=== PATIENT | female | born 1970 | race Caucasian/White ===

== ENCOUNTER 2018-01-18 10:13 | Emergency (ER) | payer OTHER ==
[~2018-01-18] VITALS: Ht 147.3 cm; Wt 54.5 kg
[~2018-01-18 10:13] MED LIST: ASPI-556 PO; ATEN50TA PO; HYDR25TA PO; INSU100V12 SQ; LEVO500 PO; LISI40TA4 PO; SERT100T12 PO; SIMV40TA5 PO
[2018-01-18 10:28] LABS: GLUCOSE,POINT OF CARE 160 MG/DL (70-110)
[2018-01-18 12:08] VITALS: BP 124/63
[2018-01-18 12:38] LABS: BASOPHILS % (AUTO) 0.6 % (0.0-2.0); EOSINOPHILS % (AUTO) 4.7 % (1.0-6.0); HEMOGLOBIN 8.9 g/dL (12.0-16.0); LYMPHOCYTES # (AUTO) 1.4 K/uL (1.0-4.8); LYMPHOCYTES % (AUTO) 17.9 % (22.0-44.0); MEAN CORPUSCULAR HEMOGLOBIN 29.6 pg (26.0-34.0); MEAN CORPUSCULAR HGB CONC 34.3 G/dL (31.0-37.0); MEAN CORPUSCULAR VOLUME 86 fL (80-100); MONOCYTES # (AUTO) 0.4 K/uL (0.1-1.0); MONOCYTES % (AUTO) 4.6 % (2.0-9.0); NEUTROPHILS # (AUTO) 5.6 K/uL (1.8-7.7); NEUTROPHILS % (AUTO) 72.2 % (40.0-70.0); PLATELET COUNT (AUTO) 374 K/uL (150-450); RED BLOOD CELL COUNT(AUTO) 3.01 MIL/uL (4.00-5.20); RED CELL DISTRIBUTION WIDTH 14.2 % (11.5-14.5)
[2018-01-18 12:41] LABS: CALCIUM, TOTAL 9.2 mg/dL (8.8-10.5); CREATININE 1.89 mg/dL (0.60-1.30); POTASSIUM 4.7 mmol/L (3.5-5.1)
[2018-01-18 12:54] LABS: ALBUMIN 2.6 g/dL (3.4-5.0); BILIRUBIN,TOTAL 0.3 mg/dL (0.1-1.0)
[2018-01-18 13:09] LABS: APPEARANCE,URINE CLEAR (CLEAR); BILIRUBIN,URINE NEGATIVE (NEGATIVE); GLUCOSE, URINE (UA) 100 mg/dL (NEGATIVE); KETONES,URINE NEGATIVE (NEGATIVE); LEUKOCYTE ESTERASE ,URINE NEGATIVE (NEGATIVE); NITRATE,URINE NEGATIVE (NEGATIVE); OCCULT BLOOD,URINE MODERATE (NEGATIVE); PH,URINE 6.5 (5.0-8.0); PROTEIN,URINE SEE CONFIRM (NEGATIVE); UROBILINOGEN,URINE 0.2 mg/dL (<=1.0)
[2018-01-18 13:17] LABS: SULFOSALICYLIC ACID,URINE 3+ (Negative)
[2018-01-18 13:18] LABS: BACTERIA,URINE Rare /HPF (None Seen); SQUAMOUS EPITHELIAL CELL,UR Few /LPF (None Seen); WBC,URINE 0-2 /HPF (0-5)
== END 2018-01-18 13:51 | disposition home or self-care (01) ==
LOC: EMS 10:15
DX: R10.13 Epigastric pain (principal); R11.10 Vomiting, unspecified; R19.7 Diarrhea, unspecified; I10 Essential (primary) hypertension; E78.00 Pure hypercholesterolemia, unspecified; E11.9 Type 2 diabetes mellitus without complications
CPT/HCPCS: 99284

== ENCOUNTER 2018-07-04 17:33 | Emergency (ER) | payer OTHER ==
[~2018-07-04] VITALS: Ht 149.9 cm; Wt 68.6 kg
[~2018-07-04 17:33] MED LIST changes: -LEVO500 PO
[2018-07-04 17:55] LABS: GLUCOSE,POINT OF CARE 394 MG/DL (70-110)
[2018-07-04] MEDS ORDERED: RANI150T7 PO (17:55)
[2018-07-04] MEDS ORDERED: METO-558 PO (17:55)
[2018-07-04] MEDS ORDERED: ALBU8HFA PO (17:55)
[2018-07-04] MEDS ORDERED: AZIT250T9 PO (17:55)
[2018-07-04] MEDS ORDERED: ATOR40TA28 PO (17:55)
[2018-07-04 18:18] LABS: INFLUENZA TYPE A NEGATIVE FOR TYPE A (NEGATIVE); INFLUENZA TYPE B NEGATIVE FOR TYPE B (NEGATIVE)
[2018-07-04] MEDS ORDERED: IPRATROPIUM BROMIDE 0.5 MG/2.5 ML NEB SOLUTION NEB ONE (20:15)
[2018-07-04] MEDS ORDERED: ALBUTEROL SULFATE 2.5 MG/0.5 ML NEB SOLUTION NEB ONE (20:15)
[2018-07-04] MEDS ORDERED: DEXAMETHASONE SOD PHOS 4 MG/ML 5 ML VIAL IM ONE (20:45)
[2018-07-04 21:31] VITALS: BP 145/88
== END 2018-07-04 21:32 | disposition home or self-care (01) ==
LOC: EMS 17:34
DX: J20.9 Acute bronchitis, unspecified (principal); E11.65 Type 2 diabetes mellitus with hyperglycemia; E78.00 Pure hypercholesterolemia, unspecified; I10 Essential (primary) hypertension; Z79.899 Other long term (current) drug therapy; Z79.4 Long term (current) use of insulin; Z79.82 Long term (current) use of aspirin
CPT/HCPCS: 81002; 82962; 87804; 94640; 96372; 99283; J1100

== ENCOUNTER 2021-03-30 11:47 | Emergency (ER) | payer OTHER ==
[~2021-03-30] VITALS: Ht 149.9 cm; Wt 66.0 kg
[~2021-03-30 11:47] MED LIST changes: +ALBU8HFA IH; +ASPI-1450 PO; -ASPI-556 PO; -ATEN50TA PO; +ATOR40TA28 PO; +B CO1CAP6 PO; +DULA0.75 SQ; +EPOE10I SQ; +FOLI0.8T43 PO; +FURO40 PO; +GABA-1216 PO; -HYDR25TA PO; +INSU100I26 SQ; -INSU100V12 SQ; -LISI40TA4 PO; +LORA10TA7 PO; +MELA3TAB89 PO; +METO-558 PO; +OMEP20 PO; +OS500 PO; +SERT-162 PO; -SERT100T12 PO; -SIMV40TA5 PO; +ZINC220C14 PO
[2021-03-30] MEDS ORDERED: GABAPENTIN 100 MG CAPSULE PO ONE (12:30)
[2021-03-30] MEDS ORDERED: ASPIRIN 325 MG TABLET PO ONE (12:30)
[2021-03-30 13:54] VITALS: BP 151/82
== END 2021-03-30 14:52 | disposition home or self-care (01) ==
LOC: EMS 12:04
DX: S83.92XA Sprain of unspecified site of left knee, initial encounter (principal); E11.9 Type 2 diabetes mellitus without complications; E78.00 Pure hypercholesterolemia, unspecified; I10 Essential (primary) hypertension; Z79.82 Long term (current) use of aspirin; Z79.899 Other long term (current) drug therapy; Z79.4 Long term (current) use of insulin; W01.0XXA Fall on same level from slipping, tripping and stumbling without subsequent striking against object, initial encounter; Y93.89 Activity, other specified; Y92.481 Parking lot as the place of occurrence of the external cause; Y99.8 Other external cause status
CPT/HCPCS: 99283

== ENCOUNTER 2021-05-29 09:36 | Emergency (ER) | payer OTHER ==
[~2021-05-29] VITALS: Ht 149.9 cm; Wt 68.0 kg
[2021-05-29 10:54] LABS: COVID AG,FIA SOURCE NASOPHARYNGEAL
[2021-05-29 11:00] VITALS: BP 135/89
[2021-05-29] MEDS ORDERED: IBUPROFEN 600 MG TABLET PO ONE (11:00)
[2021-06-01] MEDS ORDERED: ZINC220C14 PO (17:05)
[2021-06-01] MEDS ORDERED: DOXA2TAB2 PO (17:08)
[2021-06-01] MEDS ORDERED: BECL10.6 IH (17:08)
[2021-06-01] MEDS ORDERED: AMLO10TA55 PO (17:08)
[2021-06-01] MEDS ORDERED: ALEN35TA53 PO (17:08)
[2021-06-01] MEDS ORDERED: FAMO40TA7 PO (17:08)
[2021-06-01] MEDS ORDERED: HYDR-4174 PO (17:08)
[2021-06-01] MEDS ORDERED: SEVE800T17 PO (17:08)
== END 2021-05-29 11:00 | disposition home or self-care (01) ==
LOC: EMS 09:48
DX: M25.562 Pain in left knee (principal); I10 Essential (primary) hypertension; E11.9 Type 2 diabetes mellitus without complications; E78.00 Pure hypercholesterolemia, unspecified; Z20.822 Contact with and (suspected) exposure to COVID-19
CPT/HCPCS: 82962; 99283

== ENCOUNTER → 2021-07-05 | Outpatient (CLI) | payer OTHER ==
[~2021-07-05] MED LIST changes: +ALEN35TA53 PO; +AMLO10TA55 PO; -ASPI-1450 PO; +BECL10.6 IH; +DOXA2TAB2 PO; -FURO40 PO; +HYDR-4174 PO; -OMEP20 PO; +SEVE800T17 PO
== END | disposition home or self-care (01) ==
LOC: RADMN 10:10
PROVIDERS: ATTEND Family Medicine
DX: S06.5X9A Traumatic subdural hemorrhage with loss of consciousness of unspecified duration, initial encounter (principal)
CPT/HCPCS: 70450

== ENCOUNTER → 2021-08-17 | Outpatient (CLI) | payer MEDICARE, OTHER | END | disposition home or self-care (01) | LOC: RADMN 14:59 | PROVIDERS: ATTEND Internal Medicine Nephrology | DX: S92.515A Nondisplaced fracture of proximal phalanx of left lesser toe(s), initial encounter for closed fracture (principal); M79.672 Pain in left foot; X58.XXXA Exposure to other specified factors, initial encounter; Y93.89 Activity, other specified; Y92.89 Other specified places as the place of occurrence of the external cause; Y99.8 Other external cause status ==

== ENCOUNTER 2022-04-12 15:22 | Emergency (ER) | payer MEDICARE, OTHER ==
[~2022-04-12] VITALS: Ht 149.9 cm; Wt 74.0 kg
[2022-04-12 17:32] LABS: BASOPHILS % (AUTO) 0.9 % (0.0-2.0); EOSINOPHILS % (AUTO) 2.2 % (1.0-6.0); HEMATOCRIT 36.1 % (36-46); HEMOGLOBIN 12.1 g/dL (12.0-16.0); LYMPHOCYTES # (AUTO) 1.3 K/uL (1.0-4.8); MEAN CORPUSCULAR HEMOGLOBIN 34.1 pg (26.0-34.0); MEAN CORPUSCULAR HGB CONC 33.5 G/dL (31.0-37.0); MEAN CORPUSCULAR VOLUME 102 fL (80-100); MONOCYTES # (AUTO) 0.6 K/uL (0.1-1.0); NEUTROPHILS # (AUTO) 4.8 K/uL (1.8-7.7); NEUTROPHILS % (AUTO) 68.9 % (40.0-70.0); PLATELET COUNT (AUTO) 261 K/uL (150-450); RED BLOOD CELL COUNT(AUTO) 3.55 MIL/uL (4.00-5.20); RED CELL DISTRIBUTION WIDTH 13.5 % (11.5-14.5)
[2022-04-12 17:43] LABS: CALCIUM, TOTAL 11.4 mg/dL (8.8-10.5); CREATININE 3.45 mg/dL (0.60-1.30); POTASSIUM 4.3 mmol/L (3.5-5.1)
[2022-04-12 17:48] LABS: ALBUMIN 3.8 g/dL (3.4-5.0); BILIRUBIN,TOTAL 0.3 mg/dL (0.1-1.0); TOTAL PROTEIN, SERUM 8.5 g/dL (6.4-8.2)
[2022-04-12] MEDS ORDERED: FAMO40TA7 PO (17:54)
[2022-04-12] MEDS ORDERED: SERT-158 PO (17:54)
[2022-04-12] MEDS ORDERED: CALC500T37 PO (17:54)
[2022-04-12 17:59] LABS: PROTHROMBIN TIME 11.1 SEC (9.4-11.6)
[2022-04-12] MEDS ORDERED: PANTOPRAZOLE SODIUM 40 MG DR TABLET PO ONE (18:00)
[2022-04-12 18:33] VITALS: BP 166/97
== END 2022-04-12 19:13 | disposition home or self-care (01) ==
LOC: EMS 15:22
DX: T82.838A Hemorrhage due to vascular prosthetic devices, implants and grafts, initial encounter (principal); E78.00 Pure hypercholesterolemia, unspecified; I12.0 Hypertensive chronic kidney disease with stage 5 chronic kidney disease or end stage renal disease; E11.22 Type 2 diabetes mellitus with diabetic chronic kidney disease; N18.6 End stage renal disease; K21.9 Gastro-esophageal reflux disease without esophagitis; Z99.2 Dependence on renal dialysis; Y84.1 Kidney dialysis as the cause of abnormal reaction of the patient, or of later complication, without mention of misadventure at the time of the procedure
CPT/HCPCS: 80053; 84484; 85025; 85610; 85730; 93005; 99284

== ENCOUNTER 2022-04-20 13:51 | Emergency (ER) | payer MEDICARE, OTHER ==
[~2022-04-20] VITALS: Ht 149.9 cm; Wt 70.0 kg
[~2022-04-20 13:51] MED LIST changes: -ALEN35TA53 PO; -B CO1CAP6 PO; -BECL10.6 IH; +CALC500T37 PO; -DOXA2TAB2 PO; -EPOE10I SQ; +FAMO40TA7 PO; -FOLI0.8T43 PO; -HYDR-4174 PO; -INSU100I26 SQ; -OS500 PO; +SERT-158 PO; -SERT-162 PO; -ZINC220C14 PO
[2022-04-20 14:09] VITALS: BP 169/99
[2022-04-20] MEDS ORDERED: CYCL-448 PO (17:41)
== END 2022-04-20 17:51 | disposition home or self-care (01) ==
LOC: EMS 14:03
DX: M54.9 Dorsalgia, unspecified (principal); E11.9 Type 2 diabetes mellitus without complications; E78.00 Pure hypercholesterolemia, unspecified; I10 Essential (primary) hypertension; N28.9 Disorder of kidney and ureter, unspecified
CPT/HCPCS: 72072; 72100; 99284; 73030-TC; Z7502

== ENCOUNTER 2022-08-05 16:01 | Emergency (ER) | payer OTHER ==
[~2022-08-05] VITALS: Ht 147.3 cm; Wt 69.0 kg
[~2022-08-05 16:01] MED LIST changes: -ALBU8HFA IH; +CYCL-448 PO
[2022-08-05 18:16] LABS: BASOPHILS % (AUTO) 0.5 % (0.0-2.0); EOSINOPHILS % (AUTO) 1.5 % (1.0-6.0); HEMATOCRIT 33.5 % (36-46); LYMPHOCYTES # (AUTO) 0.8 K/uL (1.0-4.8); LYMPHOCYTES % (AUTO) 12.6 % (22.0-44.0); MEAN CORPUSCULAR HEMOGLOBIN 32.2 pg (26.0-34.0); MEAN CORPUSCULAR VOLUME 98 fL (80-100); MONOCYTES # (AUTO) 0.4 K/uL (0.1-1.0); MONOCYTES % (AUTO) 6.5 % (2.0-9.0); NEUTROPHILS % (AUTO) 78.9 % (40.0-70.0); PLATELET COUNT (AUTO) 231 K/uL (150-450); RED BLOOD CELL COUNT(AUTO) 3.43 MIL/uL (4.00-5.20); RED CELL DISTRIBUTION WIDTH 13.9 % (11.5-14.5)
[2022-08-05 18:27] LABS: CALCIUM, TOTAL 9.9 mg/dL (8.8-10.5); CREATININE 4.21 mg/dL (0.60-1.30)
[2022-08-05 18:34] LABS: ALBUMIN 3.9 g/dL (3.4-5.0); BILIRUBIN,TOTAL 0.3 mg/dL (0.1-1.0); TOTAL PROTEIN, SERUM 8.2 g/dL (6.4-8.2)
[2022-08-05 20:00] LABS: COVID AG,FIA SOURCE NASAL SWAB
[2022-08-05] MEDS ORDERED: OxyCODONE HCL/ACETAMINOPHEN 5-325 MG TABLET PO PRN (20:15)
[2022-08-05] MEDS ORDERED: ONDANSETRON HCL 4 MG/2 ML VIAL IVP PRN (20:15)
[2022-08-05] MEDS ORDERED: INSULIN LISPRO 100 UNITS/ML SQ PRN (20:15)
[2022-08-05] MEDS ORDERED: ACETAMINOPHEN 325 MG TABLET PO PRN (20:15)
[2022-08-05] MEDS ORDERED: DEXTROSE 50%-WATER 25 GM/50 ML SYRINGE IVP PRN (20:15)
[2022-08-05] MEDS ORDERED: METOPROLOL SUCCINATE 25 MG ER TABLET PO SCH (20:15)
[2022-08-05] MEDS ORDERED: DOXA2TAB2 PO (20:18)
[2022-08-05] MEDS ORDERED: BECL10.6 IH (20:18)
[2022-08-05] MEDS: DOCUSATE SODIUM 100 MG CAPSULE PO SCH (21:15)
[2022-08-05] MEDS: ASPIRIN 81 MG CHEWABLE TABLET PO SCH (21:15)
[2022-08-05] MEDS: ATORVASTATIN CALCIUM 20 MG TABLET PO SCH (21:15)
[2022-08-06] MEDS ORDERED: HEPARIN SODIUM,PORCINE 5,000 UNITS/ML VIAL SQ SCH
[2022-08-06 08:01] LABS: GLUCOSE,POINT OF CARE 86 MG/DL (70-110)
[2022-08-06 08:05] VITALS: BP 146/70
[2022-08-06] MEDS: ATORVASTATIN CALCIUM 20 MG TABLET PO SCH (08:28)
[2022-08-06] MEDS: DOCUSATE SODIUM 100 MG CAPSULE PO SCH (08:28)
[2022-08-06] MEDS: ASPIRIN 81 MG CHEWABLE TABLET PO SCH (08:28)
[2022-08-06] MEDS ORDERED: AmLODIPine BESYLATE 5 MG TABLET PO SCH (09:00)
[2022-08-06] MEDS ORDERED: FAMOTIDINE 20 MG TABLET PO SCH (09:00)
== END 2022-08-06 08:45 | disposition home or self-care (01) ==
LOC: EMS 16:01 → AHU 08-06 07:14 → UNDOADMIN 08-06 07:14 → EMS 08-06 08:45
DX: R07.9 Chest pain, unspecified (principal); E11.9 Type 2 diabetes mellitus without complications; E78.00 Pure hypercholesterolemia, unspecified; I10 Essential (primary) hypertension; Z98.890 Other specified postprocedural states; Z20.822 Contact with and (suspected) exposure to COVID-19
CPT/HCPCS: 99285; 71045; 87426; 80053; 82962; 83880; 84484; 85025; 93005; 93306; 36415; J1644

== ENCOUNTER 2022-09-02 17:09 | Emergency (ER) | payer OTHER ==
[~2022-09-02] VITALS: Ht 147.3 cm; Wt 70.0 kg
[~2022-09-02 17:09] MED LIST changes: +BECL10.6 IH; -CYCL-448 PO; +DOXA2TAB2 PO; -LORA10TA7 PO
[2022-09-02 20:21] LABS: BASOPHILS % (AUTO) 0.6 % (0.0-2.0); EOSINOPHILS % (AUTO) 3.3 % (1.0-6.0); HEMATOCRIT 34.5 % (36-46); HEMOGLOBIN 11.3 g/dL (12.0-16.0); LYMPHOCYTES # (AUTO) 1.3 K/uL (1.0-4.8); LYMPHOCYTES % (AUTO) 18.7 % (22.0-44.0); MEAN CORPUSCULAR HGB CONC 32.7 G/dL (31.0-37.0); MEAN CORPUSCULAR VOLUME 98 fL (80-100); MONOCYTES # (AUTO) 0.6 K/uL (0.1-1.0); MONOCYTES % (AUTO) 8.4 % (2.0-9.0); NEUTROPHILS # (AUTO) 4.7 K/uL (1.8-7.7); PLATELET COUNT (AUTO) 233 K/uL (150-450); RED BLOOD CELL COUNT(AUTO) 3.53 MIL/uL (4.00-5.20); RED CELL DISTRIBUTION WIDTH 14.6 % (11.5-14.5)
[2022-09-02 20:39] LABS: CALCIUM, TOTAL 9.8 mg/dL (8.8-10.5); CREATININE 5.56 mg/dL (0.60-1.30); POTASSIUM 4.9 mmol/L (3.5-5.1)
[2022-09-02 20:44] LABS: BILIRUBIN,TOTAL 0.3 mg/dL (0.1-1.0); TOTAL PROTEIN, SERUM 8.2 g/dL (6.4-8.2)
[2022-09-02 21:34] VITALS: BP 148/95
== END 2022-09-02 21:36 | disposition home or self-care (01) ==
LOC: EMS 17:10
DX: S00.93XA Contusion of unspecified part of head, initial encounter (principal); E11.22 Type 2 diabetes mellitus with diabetic chronic kidney disease; I12.0 Hypertensive chronic kidney disease with stage 5 chronic kidney disease or end stage renal disease; N18.6 End stage renal disease; E78.00 Pure hypercholesterolemia, unspecified; Z99.2 Dependence on renal dialysis; Z98.890 Other specified postprocedural states; W19.XXXA Unspecified fall, initial encounter; Y93.89 Activity, other specified; Y92.89 Other specified places as the place of occurrence of the external cause; Y99.8 Other external cause status
CPT/HCPCS: 70450; 80053; 83690; 84484; 85025; 93005; 99285

== ENCOUNTER 2023-05-03 10:54 | Emergency (ER) | payer OTHER ==
[~2023-05-03] VITALS: Ht 152.4 cm; Wt 60.5 kg
[2023-05-03 11:16] VITALS: BP 139/96; PULSE 77; RESP 16; TEMP 98.3
[2023-05-03 11:22] LABS: COVID AG,FIA SOURCE NASAL SWAB
[2023-05-03 12:13] LABS: RAPID GROUP A STREP NEGATIVE (NEGATIVE)
[2023-05-03 12:16] LABS: INFLUENZA TYPE A NEGATIVE FOR TYPE A (NEGATIVE); INFLUENZA TYPE B NEGATIVE FOR TYPE B (NEGATIVE)
[2023-05-03 12:22] LABS: SARS-COV2 (COVID) ANTIGEN,FIA Positive (Negative)
== END 2023-05-03 17:19 | disposition left against medical advice (07) ==
LOC: EMS 11:06
DX: U07.1 COVID-19 (principal); E11.22 Type 2 diabetes mellitus with diabetic chronic kidney disease; I12.0 Hypertensive chronic kidney disease with stage 5 chronic kidney disease or end stage renal disease; N18.6 End stage renal disease; Z99.2 Dependence on renal dialysis; Z98.890 Other specified postprocedural states
CPT/HCPCS: 82962; 87430; 87804; 99283

== ENCOUNTER 2023-06-06 08:56 | Day surgery (SDC) | payer OTHER ==
[~2023-06-06] VITALS: Ht 149.9 cm; Wt 66.0 kg
[~2023-06-06 08:56] MED LIST changes: +CHLORHEXIDINE GLUCONATE 2% TOWELETTE [2'S/6'S] TP ONE; +CeFAZolin 2 GM/DEXTROSE 50 ML IV ONE; -SEVE800T17 PO; +SEVE800T38 PO
[2023-06-06] MEDS ORDERED: FentaNYL CITRATE PF 100 MCG/2 ML VIAL IVP ONE (08:57)
[2023-06-06] MEDS ORDERED: MIDAZOLAM HCL 2 MG/2 ML VIAL IVP ONE (08:57)
[2023-06-06] MEDS ORDERED: LIDOCAINE/PF 2% 5 ML VIAL IM ONE (08:57)
[2023-06-06] MEDS ORDERED: ONDANSETRON HCL 4 MG/2 ML VIAL IVP ONE (08:57)
[2023-06-06] MEDS ORDERED: PROPOFOL 1% ISO-OSM 1000 MG/100 ML BOTTLE IV ONE (08:57)
[2023-06-06] MEDS ORDERED: HEPARIN SODIUM,PORCINE 10,000 UNITS/ML VIAL SQ ONE (08:57)
[2023-06-06] MEDS ORDERED: ETHYL ALCOHOL 62% ANTISEPTIC NASAL SANITIZER 0.6 ML AMPUL NASAL ONE (09:45)
[2023-06-06 09:57] LABS: BASOPHILS % (AUTO) 0.8 % (0.0-2.0); EOSINOPHILS % (AUTO) 4.8 % (1.0-6.0); HEMATOCRIT 33.3 % (36-46); HEMOGLOBIN 11.2 g/dL (12.0-16.0); LYMPHOCYTES # (AUTO) 1.2 K/uL (1.0-4.8); LYMPHOCYTES % (AUTO) 14.5 % (22.0-44.0); MEAN CORPUSCULAR HEMOGLOBIN 33.2 pg (26.0-34.0); MEAN CORPUSCULAR HGB CONC 33.6 G/dL (31.0-37.0); MEAN CORPUSCULAR VOLUME 99 fL (80-100); MONOCYTES # (AUTO) 0.7 K/uL (0.1-1.0); NEUTROPHILS # (AUTO) 5.9 K/uL (1.8-7.7); NEUTROPHILS % (AUTO) 70.9 % (40.0-70.0); PLATELET COUNT (AUTO) 197 K/uL (150-450); RED BLOOD CELL COUNT(AUTO) 3.37 MIL/uL (4.00-5.20); WHITE BLOOD COUNT (AUTO) 8.3 K/uL (4.5-11.0)
[2023-06-06 10:06] LABS: CALCIUM, TOTAL 10.2 mg/dL (8.8-10.5); CREATININE 5.15 mg/dL (0.60-1.30); POTASSIUM 4.4 mmol/L (3.5-5.1)
[2023-06-06] MEDS ORDERED: SODIUM CHLORIDE 0.9% 1,000 ML ONE (10:07)
[2023-06-06 10:10] LABS: INR 1.1 (0.9-1.1)
[2023-06-06] MEDS ORDERED: SODIUM CHLORIDE 0.9% 1,000 ML IV ONE (10:15)
[2023-06-06] MEDS ORDERED: CeFAZolin 2 GM/DEXTROSE 50 ML IV ONE (10:27)
[2023-06-06 10:36] LABS: GLUCOMETER DEV NAME(LOC) SDS.; GLUCOSE,POINT OF CARE 92 MG/DL (70-110)
[2023-06-06] MEDS ORDERED: VANCOMYCIN HCL 1 GM/VIAL ONE (12:40)
[2023-06-06] MEDS ORDERED: GELATIN SPONGE,ABSORBABLE 100 MM TP ONE (14:06)
[2023-06-06] MEDS ORDERED: THROMBIN, BOVINE 20000 UNITS/VIAL POWDER TP ONE (14:07)
[2023-06-06] MEDS ORDERED: PROTAMINE SULFATE 10 MG/ML 5 ML VIAL ONE (14:15)
[2023-06-06] MEDS ORDERED: LIDOCAINE/PF 1% 30 ML VIAL ONE (15:12)
[2023-06-06] MEDS ORDERED: GELATIN SPONGE,ABSORBABLE 50 MM TP ONE (15:12)
[2023-06-06] MEDS ORDERED: HEPARIN SODIUM,PORCINE 5,000 UNITS/ML VIAL ONE (15:13)
[2023-06-06] MEDS ORDERED: SODIUM CHLORIDE 0.9% 100 ML ONE (16:30)
[2023-06-06] MEDS ORDERED: OXYGEN THERAPY IH SCH (20:00)
== END 2023-06-06 16:25 | disposition home or self-care (01) ==
LOC: SURGERY 08:56
PROVIDERS: ATTEND Surgery
DX: I12.0 Hypertensive chronic kidney disease with stage 5 chronic kidney disease or end stage renal disease (principal); E11.22 Type 2 diabetes mellitus with diabetic chronic kidney disease; N18.6 End stage renal disease; E78.00 Pure hypercholesterolemia, unspecified; Z79.899 Other long term (current) drug therapy; Z98.51 Tubal ligation status; Z98.890 Other specified postprocedural states; Z87.01 Personal history of pneumonia (recurrent); Z20.822 Contact with and (suspected) exposure to COVID-19; K21.9 Gastro-esophageal reflux disease without esophagitis
CPT/HCPCS: 36832; 80048; 82962; 85025; 85610; 85730; 36415; 88304; 93005; 71046; J3010; J1644 ×2; J3490 ×2; J2250; J2405; J2704; J2720; J3370; J7030; J7050; J0690; Z7610

== ENCOUNTER 2023-06-16 16:09 | Inpatient (IN) | payer OTHER ==
[~2023-06-16] VITALS: Ht 149.9 cm; Wt 68.5 kg
[~2023-06-16 16:09] MED LIST changes: -CHLORHEXIDINE GLUCONATE 2% TOWELETTE [2'S/6'S] TP ONE; -CeFAZolin 2 GM/DEXTROSE 50 ML IV ONE; +SEVE800T17 PO; -SEVE800T38 PO
[2023-06-16 17:45] LABS: HEMOGLOBIN 11.5 g/dL (12.0-16.0); WHITE BLOOD COUNT (AUTO) 8.7 K/uL (4.5-11.0)
[2023-06-16 17:50] LABS: BASOPHILS % (AUTO) 0.7 % (0.0-2.0); EOSINOPHILS % (AUTO) 2.2 % (1.0-6.0); HEMATOCRIT 34.3 % (36-46); LYMPHOCYTES # (AUTO) 1.2 K/uL (1.0-4.8); LYMPHOCYTES % (AUTO) 14.3 % (22.0-44.0); MEAN CORPUSCULAR HEMOGLOBIN 33.5 pg (26.0-34.0); MEAN CORPUSCULAR HGB CONC 33.4 G/dL (31.0-37.0); MEAN CORPUSCULAR VOLUME 100 fL (80-100); MONOCYTES # (AUTO) 0.5 K/uL (0.1-1.0); MONOCYTES % (AUTO) 5.9 % (2.0-9.0); NEUTROPHILS # (AUTO) 6.7 K/uL (1.8-7.7); NEUTROPHILS % (AUTO) 76.9 % (40.0-70.0); PLATELET COUNT (AUTO) 256 K/uL (150-450); RED BLOOD CELL COUNT(AUTO) 3.42 MIL/uL (4.00-5.20); RED CELL DISTRIBUTION WIDTH 17.2 % (11.5-14.5)
[2023-06-16 18:01] LABS: ALBUMIN 4.4 g/dL (3.4-5.0); BILIRUBIN,TOTAL 0.5 mg/dL (0.1-1.0); CREATININE 5.38 mg/dL (0.60-1.30); POTASSIUM 5.1 mmol/L (3.5-5.1); TOTAL PROTEIN, SERUM 9.4 g/dL (6.4-8.2); TROPONIN I-HIGH SENSITIVITY 26 ng/L (<51)
[2023-06-16 18:23] LABS: RBC MORPHOLOGY COMMENT ABNORMAL RBC MORPH
[2023-06-16] MEDS ORDERED: ONDANSETRON HCL 4 MG TABLET PO ONE (20:45)
[2023-06-16 21:30] LABS: TROPONIN I-HIGH SENSITIVITY 29 ng/L (<51)
[2023-06-16] MEDS ORDERED: HYDROCODONE/ACETAMINOPHEN 5-325 MG TABLET PO PRN (22:45)
[2023-06-16] MEDS ORDERED: MORPHINE SULFATE 2 MG/ML SYRINGE IVP PRN (22:45)
[2023-06-16] MEDS ORDERED: MAGNESIUM HYDROXIDE SUSPENSION 30 ML UDCUP PO PRN (22:45)
[2023-06-16] MEDS ORDERED: ONDANSETRON HCL 4 MG/2 ML VIAL IVP PRN (22:45)
[2023-06-16] MEDS ORDERED: BISACODYL 10 MG RECTAL RECTAL SUPPOSITORY PR PRN (22:45)
[2023-06-16] MEDS ORDERED: ZOLPIDEM TARTRATE 5 MG TABLET PO PRN (22:45)
[2023-06-16] MEDS ORDERED: SODIUM CHLORIDE 0.9% 1,000 ML IV ONE (22:45)
[2023-06-16] MEDS ORDERED: AmLODIPine BESYLATE 10 MG TABLET PO ONE (22:45)
[2023-06-16] MEDS ORDERED: ACETAMINOPHEN 325 MG TABLET PO PRN (22:45)
[2023-06-16] MEDS ORDERED: MELATONIN 3 MG TABLET PO PRN (23:00)
[2023-06-16] MEDS: HEPARIN SODIUM,PORCINE 5,000 UNITS/ML VIAL SQ SCH (23:22)
[2023-06-17] VITALS (7 sets, daily range): BP systolic 158–185; BP diastolic 70–99; PULSE 68–81; RESP 18–20; TEMP 98.2–98.5
[2023-06-17 01:35] LABS: COVID AG,FIA SOURCE NASAL SWAB
[2023-06-17 01:56] LABS: SARS-COV2 (COVID) ANTIGEN,FIA Negative (Negative)
[2023-06-17] MEDS: HydrALAZINE HCL 20 MG/ML VIAL IVP PRN ×2 (03:30→23:50)
[2023-06-17 07:19] LABS: BILIRUBIN,TOTAL 0.4 mg/dL (0.1-1.0); CALCIUM, TOTAL 9.7 mg/dL (8.8-10.5); CREATININE 5.79 mg/dL (0.60-1.30); POTASSIUM 4.3 mmol/L (3.5-5.1); TOTAL PROTEIN, SERUM 6.8 g/dL (6.4-8.2)
[2023-06-17 07:24] LABS: BASOPHILS % (AUTO) 0.5 % (0.0-2.0); EOSINOPHILS % (AUTO) 2.6 % (1.0-6.0); HEMATOCRIT 26.1 % (36-46); HEMOGLOBIN 8.9 g/dL (12.0-16.0); LYMPHOCYTES # (AUTO) 1.3 K/uL (1.0-4.8); LYMPHOCYTES % (AUTO) 14.4 % (22.0-44.0); MEAN CORPUSCULAR HEMOGLOBIN 34.2 pg (26.0-34.0); MEAN CORPUSCULAR VOLUME 100 fL (80-100); MONOCYTES # (AUTO) 0.6 K/uL (0.1-1.0); MONOCYTES % (AUTO) 7.2 % (2.0-9.0); NEUTROPHILS # (AUTO) 6.8 K/uL (1.8-7.7); NEUTROPHILS % (AUTO) 75.3 % (40.0-70.0); PLATELET COUNT (AUTO) 209 K/uL (150-450); RED CELL DISTRIBUTION WIDTH 17.1 % (11.5-14.5)
[2023-06-17] MEDS: PANTOPRAZOLE SODIUM 40 MG DR TABLET PO SCH (07:54)
[2023-06-17] MEDS: HEPARIN SODIUM,PORCINE 5,000 UNITS/ML VIAL SQ SCH ×3 (07:54→23:50)
[2023-06-17] MEDS: ATORVASTATIN CALCIUM 40 MG TABLET PO SCH (07:54)
[2023-06-17] MEDS: DOXAZOSIN MESYLATE 2 MG TABLET PO SCH (07:55)
[2023-06-17] MEDS: GABAPENTIN 100 MG CAPSULE PO SCH (07:55)
[2023-06-17] MEDS: AmLODIPine BESYLATE 10 MG TABLET PO SCH (07:55)
[2023-06-17] MEDS: SEVELAMER CARBONATE 800 MG TABLET PO SCH ×3 (07:55→21:07)
[2023-06-17] MEDS: BECLOMETHASONE DIPR HFA 40 MCG/PUFF 10.6 GM INHALER IH SCH ×2 (07:56→21:08)
[2023-06-17] MEDS: METOPROLOL SUCCINATE 50 MG ER TABLET PO SCH (07:56)
[2023-06-17] MEDS: DOCUSATE SODIUM 100 MG CAPSULE PO SCH ×2 (07:56→21:00)
[2023-06-17] MEDS: SERTRALINE HCL 50 MG TABLET PO SCH (07:56)
[2023-06-17 09:30] LABS: RBC MORPHOLOGY COMMENT ABNORMAL RBC MORPH
[2023-06-17 13:00] LABS: APPEARANCE,URINE HAZY (CLEAR); BILIRUBIN,URINE NEGATIVE (NEGATIVE); COLOR,URINE LIGHT YELLOW (YELLOW); GLUCOSE, URINE (UA) 300-500 mg/dL (NEGATIVE); KETONES,URINE NEGATIVE (NEGATIVE); LEUKOCYTE ESTERASE ,URINE NEGATIVE (NEGATIVE); NITRATE,URINE NEGATIVE (NEGATIVE); OCCULT BLOOD,URINE NEGATIVE (NEGATIVE); PH,URINE 8.5 (5.0-8.0); PROTEIN,URINE 300-600,SEE CONFIRM mg/dL (NEGATIVE); SPECIFIC GRAVITIY, URINE 1.009 (1.003-1.030); UROBILINOGEN,URINE <=1.0 mg/dL (<=1.0)
[2023-06-17 13:11] LABS: AMORPHOUS SEDIMENT,UR Few /LPF (None Seen); BACTERIA,URINE Few /HPF (None Seen); RBC,URINE 0-2 /HPF (0-2); SQUAMOUS EPITHELIAL CELL,UR Few /LPF (None Seen); WBC,URINE 0-2 /HPF (0-5)
[2023-06-17 13:22] LABS: SULFOSALICYLIC ACID,URINE 4+ (Negative)
[2023-06-17] MEDS: METOCLOPRAMIDE HCL 5 MG TABLET PO SCH ×2 (15:50→21:07)
[2023-06-18] VITALS (15 sets, daily range): BP systolic 129–178; BP diastolic 71–93; PULSE 67–73; RESP 18–20; TEMP 96.8–98.5
[2023-06-18 07:26] LABS: BASOPHILS % (AUTO) 0.3 % (0.0-2.0); EOSINOPHILS % (AUTO) 3.5 % (1.0-6.0); HEMATOCRIT 25.4 % (36-46); HEMOGLOBIN 8.7 g/dL (12.0-16.0); LYMPHOCYTES % (AUTO) 12.7 % (22.0-44.0); MEAN CORPUSCULAR HEMOGLOBIN 34.2 pg (26.0-34.0); MEAN CORPUSCULAR HGB CONC 34.2 G/dL (31.0-37.0); MEAN CORPUSCULAR VOLUME 100 fL (80-100); MONOCYTES # (AUTO) 0.7 K/uL (0.1-1.0); MONOCYTES % (AUTO) 9.1 % (2.0-9.0); NEUTROPHILS # (AUTO) 6.1 K/uL (1.8-7.7); NEUTROPHILS % (AUTO) 74.4 % (40.0-70.0); PLATELET COUNT (AUTO) 199 K/uL (150-450); RED BLOOD CELL COUNT(AUTO) 2.54 MIL/uL (4.00-5.20); RED CELL DISTRIBUTION WIDTH 17.7 % (11.5-14.5); WHITE BLOOD COUNT (AUTO) 8.2 K/uL (4.5-11.0)
[2023-06-18] MEDS: HEPARIN SODIUM,PORCINE 5,000 UNITS/ML VIAL SQ SCH ×3 (08:00→16:10)
[2023-06-18] MEDS: ATORVASTATIN CALCIUM 40 MG TABLET PO SCH (08:11)
[2023-06-18] MEDS: SEVELAMER CARBONATE 800 MG TABLET PO SCH ×3 (08:11→18:58)
[2023-06-18] MEDS: BECLOMETHASONE DIPR HFA 40 MCG/PUFF 10.6 GM INHALER IH SCH (08:11)
[2023-06-18] MEDS: GABAPENTIN 100 MG CAPSULE PO SCH (08:11)
[2023-06-18] MEDS: PANTOPRAZOLE SODIUM 40 MG DR TABLET PO SCH (08:11)
[2023-06-18] MEDS: DOCUSATE SODIUM 100 MG CAPSULE PO SCH (08:12)
[2023-06-18] MEDS: DOXAZOSIN MESYLATE 2 MG TABLET PO SCH (08:12)
[2023-06-18] MEDS: SERTRALINE HCL 50 MG TABLET PO SCH (08:12)
[2023-06-18] MEDS: METOCLOPRAMIDE HCL 5 MG TABLET PO SCH ×2 (08:13→16:10)
[2023-06-18] MEDS: AmLODIPine BESYLATE 10 MG TABLET PO SCH (08:13)
[2023-06-18] MEDS: METOPROLOL SUCCINATE 50 MG ER TABLET PO SCH (10:06)
[2023-06-18 10:10] LABS: RBC MORPHOLOGY COMMENT ABNORMAL RBC MORPH
[2023-06-18] MEDS ORDERED: METO5TAB95 PO (12:08)
[2023-06-18] MEDS ORDERED: LIDOCAINE/PF 1% 2 ML VIAL IM ONE (20:33)
[2023-06-19 10:07] LABS: HEPATITIS C AB (EIA) Non Reactive (Non Reactive)
== END 2023-06-18 20:34 | disposition home or self-care (01) | DRG 73 ==
LOC: EMS 16:11 → 5S 06-17 00:11
PROVIDERS: ADMIT Internal Medicine; ATTEND Internal Medicine
PROC: 5A1D70Z Performance of Urinary Filtration, Intermittent, Less than 6 Hours Per Day (ICD-10-PCS; principal; 2023-06-18)
DX: E11.43 Type 2 diabetes mellitus with diabetic autonomic (poly)neuropathy (principal); N18.6 End stage renal disease; I12.0 Hypertensive chronic kidney disease with stage 5 chronic kidney disease or end stage renal disease; E87.5 Hyperkalemia; K31.84 Gastroparesis; Z99.2 Dependence on renal dialysis; E03.9 Hypothyroidism, unspecified; E11.22 Type 2 diabetes mellitus with diabetic chronic kidney disease; Z20.822 Contact with and (suspected) exposure to COVID-19; E11.319 Type 2 diabetes mellitus with unspecified diabetic retinopathy without macular edema; E83.52 Hypercalcemia; E11.40 Type 2 diabetes mellitus with diabetic neuropathy, unspecified; E78.00 Pure hypercholesterolemia, unspecified; D63.1 Anemia in chronic kidney disease; Z79.899 Other long term (current) drug therapy
CPT/HCPCS: 74022; 74176; 80053; 81001; 81002; 83690; 84484; 85025; 86803; 87081; 87340; 90935; 93005; 99285; J0360; J1644; J2405; J3490; J3535; J7030; Q0162

== ENCOUNTER 2024-08-30 10:56 | Inpatient (IN) | payer OTHER ==
[~2024-08-30] VITALS: Ht 144.8 cm; Wt 71.5 kg
[~2024-08-30 10:56] MED LIST changes: -CALC500T37 PO; +FOLI0.8T54 PO; +ISOS30TA92 PO; +KETO-99 OU; +LIFI1DRO OU; +METO-325 PO; -METO-558 PO; +METO5TAB2 PO; +PANT40TA54 PO; +QUET25TA36 PO; -SERT-158 PO; +SERT-440 PO; -SEVE800T17 PO; +SEVE800T38 PO; +SODI44SP18 NASAL
[2024-08-30 11:36] LABS: GLUCOMETER DEV NAME(LOC) ERT.6; GLUCOSE,POINT OF CARE 146 MG/DL (70-110)
[2024-08-30 11:43] LABS: COVID AG,FIA SOURCE NASAL SWAB
[2024-08-30 12:07] LABS: INFLUENZA TYPE A NEGATIVE FOR TYPE A (NEGATIVE); INFLUENZA TYPE B NEGATIVE FOR TYPE B (NEGATIVE)
[2024-08-30 12:09] LABS: SARS-COV2 (COVID) ANTIGEN,FIA Positive (Negative)
[2024-08-30 12:36] LABS: BASOPHILS % (AUTO) 0.5 % (0.0-2.0); EOSINOPHILS % (AUTO) 1.5 % (1.0-6.0); HEMATOCRIT 32.5 % (36-46); HEMOGLOBIN 10.9 g/dL (12.0-16.0); LYMPHOCYTES # (AUTO) 0.6 K/uL (1.0-4.8); LYMPHOCYTES % (AUTO) 7.4 % (22.0-44.0); MEAN CORPUSCULAR HEMOGLOBIN 33.7 pg (26.0-34.0); MEAN CORPUSCULAR HGB CONC 33.7 G/dL (31.0-37.0); MEAN CORPUSCULAR VOLUME 100 fL (80-100); MONOCYTES # (AUTO) 0.7 K/uL (0.1-1.0); MONOCYTES % (AUTO) 8.7 % (2.0-9.0); NEUTROPHILS # (AUTO) 6.7 K/uL (1.8-7.7); NEUTROPHILS % (AUTO) 81.9 % (40.0-70.0); PLATELET COUNT (AUTO) 180 K/uL (150-450); RED BLOOD CELL COUNT(AUTO) 3.24 MIL/uL (4.00-5.20); RED CELL DISTRIBUTION WIDTH 15.4 % (11.5-14.5); WHITE BLOOD COUNT (AUTO) 8.2 K/uL (4.5-11.0)
[2024-08-30 12:40] LABS: ANION GAP 10 mmol/L (8-16); CALCIUM, TOTAL 9.2 mg/dL (8.8-10.5); CARBON DIOXIDE 30 mmol/L (22-29); CHLORIDE 96 mmol/L (98-107); CREATININE 8.38 mg/dL (0.60-1.30); GLOMERULAR FILTR. RATE CALC 5 mL/min (>60); GLUCOSE,RANDOM 112 mg/dL (70-110); POTASSIUM 5.5 mmol/L (3.5-5.1); SODIUM SERUM 136 mmol/L (136-145); UREA NITROGEN, BLOOD 68 mg/dL (7-18)
[2024-08-30] MEDS ORDERED: VANCOMYCIN 1.25 GM/WATER(PEG) 250 ML IV ONE (12:45)
[2024-08-30 12:46] LABS: ALBUMIN 3.6 g/dL (3.4-5.0); BILIRUBIN,DIRECT 0.1 mg/dL (0.00-0.20); BILIRUBIN,TOTAL 0.8 mg/dL (0.1-1.0); TOTAL PROTEIN, SERUM 8.1 g/dL (6.4-8.2)
[2024-08-30 12:51] LABS: CREATINE KINASE, TOTAL ONLY 116 U/L (26-192); TROPONIN I-HIGH SENSITIVITY 34 ng/L (<51)
[2024-08-30 12:55] LABS: B-TYPE NATRIURETIC PEPTIDE 2390 pg/mL (0-100)
[2024-08-30 13:05] LABS: RBC MORPHOLOGY COMMENT ABNORMAL RBC MORPH
[2024-08-30] MEDS: PIPERACILLIN/TAZO 3.375 GM/D5W 50 ML IV ONE (13:42)
[2024-08-30] MEDS: HydrALAZINE HCL 20 MG/ML VIAL IVP ONE (14:12)
[2024-08-30] MEDS: VANCOMYCIN HCL 1.25 GM in DEXTROSE 5%-WATER 250 ML IV ONE (14:16)
[2024-08-30] MEDS: AZITHROMYCIN 500 MG/NS 250 ML IV ONE (14:17)
[2024-08-30] MEDS ORDERED: FOLI0.8T22 PO (14:40)
[2024-08-30] MEDS ORDERED: ESOM20CA51 PO (14:40)
[2024-08-30] MEDS ORDERED: HYDR50CA6 PO (14:40)
[2024-08-30] MEDS ORDERED: ASPI-1444 PO (14:40)
[2024-08-30] MEDS ORDERED: MAGNESIUM HYDROXIDE SUSPENSION 30 ML UDCUP PO PRN (14:45)
[2024-08-30] MEDS ORDERED: HYDROCODONE/ACETAMINOPHEN 5-325 MG TABLET PO PRN (14:45)
[2024-08-30] MEDS ORDERED: BISACODYL 10 MG RECTAL RECTAL SUPPOSITORY PR PRN (14:45)
[2024-08-30] MEDS ORDERED: ZOLPIDEM TARTRATE 5 MG TABLET PO PRN (14:45)
[2024-08-30] MEDS: ONDANSETRON HCL 4 MG/2 ML VIAL IVP ONE (14:55)
[2024-08-30] MEDS: DEXAMETHASONE 4 MG TABLET PO SCH (14:55)
[2024-08-30] MEDS: CefTRIAXone 1 GM/DEXTROSE 50 ML IV SCH (15:00)
[2024-08-30] MEDS: NITROGLYCERIN 50 MG/D5% WATER 250 ML IV PRN (15:59)
[2024-08-30] MEDS: HEPARIN SODIUM,PORCINE 5,000 UNITS/ML VIAL SQ SCH (16:00)
[2024-08-30] MEDS: SEVELAMER CARBONATE 800 MG TABLET PO SCH (17:30)
[2024-08-30] MEDS: FOLIC ACID/VIT B COMPLEX AND C TABLET PO SCH (18:30)
[2024-08-30] MEDS: DOCUSATE SODIUM 100 MG CAPSULE PO SCH (21:00)
[2024-08-30 21:10] LABS: GLUCOMETER DEV NAME(LOC) ERT.6; GLUCOSE,POINT OF CARE 166 MG/DL (70-110)
[2024-08-30 22:10] VITALS: BP 224/130; PULSE 95; RESP 22; O2SAT 96
[2024-08-30 22:30] VITALS: BP 255/143; PULSE 95; RESP 22; O2SAT 100
[2024-08-30 23:00] VITALS: BP 239/136; PULSE 104; RESP 20; O2SAT 100
[2024-08-30] MEDS: LIDOCAINE/PF 1% 2 ML VIAL ID ONE (23:00)
[2024-08-30 23:30] VITALS: BP 152/121; PULSE 105; RESP 20; O2SAT 100
[2024-08-31] VITALS: BP 171/112; PULSE 101; RESP 20; O2SAT 100
[2024-08-31 00:30] VITALS: BP 146/96; PULSE 104; RESP 19; O2SAT 100
[2024-08-31 01:00] VITALS: BP 133/88; PULSE 101; RESP 19; O2SAT 100
[2024-08-31 01:15] VITALS: BP 120/79; PULSE 104; RESP 19; O2SAT 100
[2024-08-31 01:30] VITALS: BP 137/77; PULSE 98; RESP 19; O2SAT 96
[2024-08-31 01:45] VITALS: BP 162/87; PULSE 97; RESP 19; TEMP 98.5; O2SAT 98
[2024-08-31] MEDS: MELATONIN 3 MG TABLET PO PRN (02:58)
[2024-08-31 07:04] LABS: BASOPHILS % (AUTO) 0.5 % (0.0-2.0); EOSINOPHILS % (AUTO) 0 % (1.0-6.0); HEMATOCRIT 30.9 % (36-46); HEMOGLOBIN 10.3 g/dL (12.0-16.0); LYMPHOCYTES # (AUTO) 0.4 K/uL (1.0-4.8); LYMPHOCYTES % (AUTO) 5.8 % (22.0-44.0); MEAN CORPUSCULAR HEMOGLOBIN 33.5 pg (26.0-34.0); MEAN CORPUSCULAR HGB CONC 33.3 G/dL (31.0-37.0); MEAN CORPUSCULAR VOLUME 101 fL (80-100); MONOCYTES # (AUTO) 0.3 K/uL (0.1-1.0); MONOCYTES % (AUTO) 4.6 % (2.0-9.0); NEUTROPHILS # (AUTO) 6.1 K/uL (1.8-7.7); PLATELET COUNT (AUTO) 178 K/uL (150-450); RED BLOOD CELL COUNT(AUTO) 3.06 MIL/uL (4.00-5.20); WHITE BLOOD COUNT (AUTO) 6.8 K/uL (4.5-11.0)
[2024-08-31 07:11] LABS: CALCIUM, TOTAL 9.1 mg/dL (8.8-10.5); CREATININE 5.09 mg/dL (0.60-1.30); NEUTROPHILS % (AUTO) 89.1 % (40.0-70.0); POTASSIUM 5.1 mmol/L (3.5-5.1)
[2024-08-31] MEDS: ACETAMINOPHEN 325 MG TABLET PO PRN (07:30)
[2024-08-31] MEDS: NITROGLYCERIN 50 MG/D5% WATER 250 ML IV PRN (07:44)
[2024-08-31] MEDS: METOPROLOL SUCCINATE 50 MG ER TABLET PO SCH (08:18)
[2024-08-31] MEDS: ISOSORBIDE MONONITRATE 30 MG ER TABLET PO SCH (08:18)
[2024-08-31] MEDS: SERTRALINE HCL 100 MG TABLET PO SCH (08:19)
[2024-08-31] MEDS: PANTOPRAZOLE SODIUM 40 MG DR TABLET PO SCH (08:26)
[2024-08-31] MEDS: AmLODIPine BESYLATE 10 MG TABLET PO SCH (08:27)
[2024-08-31] MEDS: ATORVASTATIN CALCIUM 40 MG TABLET PO SCH (08:28)
[2024-08-31] MEDS: LABETALOL HCL 5 MG/ML 20 ML VIAL IVP PRN (08:58)
[2024-08-31 09:06] LABS: RBC MORPHOLOGY COMMENT ABNORMAL RBC MORPH
[2024-08-31] MEDS: BECLOMETHASONE DIPR HFA 40 MCG/PUFF 10.6 GM INHALER IH SCH (09:09)
[2024-08-31] MEDS: AZITHROMYCIN 500 MG/NS 250 ML IV SCH (13:35)
[2024-09-01] VITALS (13 sets, daily range): BP systolic 121–146; BP diastolic 69–94; PULSE 62–97; RESP 18–19; TEMP 97.7–98.1; O2SAT 97–98
[2024-09-01 05:49] LABS: BASOPHILS % (AUTO) 0.3 % (0.0-2.0); EOSINOPHILS % (AUTO) 0 % (1.0-6.0); HEMATOCRIT 28.5 % (36-46); HEMOGLOBIN 9.5 g/dL (12.0-16.0); LYMPHOCYTES # (AUTO) 0.4 K/uL (1.0-4.8); LYMPHOCYTES % (AUTO) 2.9 % (22.0-44.0); MEAN CORPUSCULAR HEMOGLOBIN 33.5 pg (26.0-34.0); MEAN CORPUSCULAR HGB CONC 33.4 G/dL (31.0-37.0); MEAN CORPUSCULAR VOLUME 100 fL (80-100); MONOCYTES # (AUTO) 0.4 K/uL (0.1-1.0); MONOCYTES % (AUTO) 3.3 % (2.0-9.0); NEUTROPHILS # (AUTO) 11.4 K/uL (1.8-7.7); NEUTROPHILS % (AUTO) 93.5 % (40.0-70.0); PLATELET COUNT (AUTO) 196 K/uL (150-450); RED BLOOD CELL COUNT(AUTO) 2.84 MIL/uL (4.00-5.20); RED CELL DISTRIBUTION WIDTH 15.5 % (11.5-14.5); WHITE BLOOD COUNT (AUTO) 12.1 K/uL (4.5-11.0)
[2024-09-01 06:15] LABS: CALCIUM, TOTAL 9.2 mg/dL (8.8-10.5); CREATININE 6.99 mg/dL (0.60-1.30); POTASSIUM 4.9 mmol/L (3.5-5.1)
[2024-09-01] MEDS: MORPHINE SULFATE 2 MG/ML SYRINGE IVP PRN (06:24)
[2024-09-01] MEDS: LABETALOL HCL 5 MG/ML 20 ML VIAL IVP PRN (12:42)
[2024-09-01] MEDS ORDERED: SODIUM CHLORIDE 0.9% 500 ML IV ONE (14:13)
[2024-09-01] MEDS: ONDANSETRON HCL 4 MG/2 ML VIAL IVP PRN (15:12)
[2024-09-01] MEDS ORDERED: SODIUM CHLORIDE 0.9% 1,000 ML ONE (15:45)
[2024-09-01 18:16] LABS: GLUCOMETER DEV NAME(LOC) 5S.2D; GLUCOSE,POINT OF CARE 186 MG/DL (70-110)
[2024-09-01] MEDS: LIDOCAINE/PF 1% 2 ML VIAL ID ONE (19:45)
[2024-09-02 00:09] VITALS: BP 128/79; PULSE 82; RESP 18; TEMP 98.3; O2SAT 92
[2024-09-02 05:01] VITALS: BP 150/77; PULSE 75; RESP 18; TEMP 98.3; O2SAT 93
[2024-09-02] MEDS ORDERED: LIDOCAINE/PF 2% 5 ML VIAL IM ONE (06:42)
[2024-09-02 07:28] LABS: BASOPHILS % (AUTO) 0.1 % (0.0-2.0); EOSINOPHILS % (AUTO) 0 % (1.0-6.0); HEMATOCRIT 27.3 % (36-46); HEMOGLOBIN 9.2 g/dL (12.0-16.0); LYMPHOCYTES # (AUTO) 0.5 K/uL (1.0-4.8); LYMPHOCYTES % (AUTO) 5.2 % (22.0-44.0); MEAN CORPUSCULAR HEMOGLOBIN 33.9 pg (26.0-34.0); MEAN CORPUSCULAR HGB CONC 33.8 G/dL (31.0-37.0); MEAN CORPUSCULAR VOLUME 101 fL (80-100); MONOCYTES # (AUTO) 0.8 K/uL (0.1-1.0); MONOCYTES % (AUTO) 7.4 % (2.0-9.0); NEUTROPHILS # (AUTO) 8.8 K/uL (1.8-7.7); PLATELET COUNT (AUTO) 216 K/uL (150-450); RED BLOOD CELL COUNT(AUTO) 2.71 MIL/uL (4.00-5.20); RED CELL DISTRIBUTION WIDTH 15.3 % (11.5-14.5); WHITE BLOOD COUNT (AUTO) 10.1 K/uL (4.5-11.0)
[2024-09-02 07:31] LABS: NEUTROPHILS % (AUTO) 87.3 % (40.0-70.0)
[2024-09-02 07:34] LABS: CALCIUM, TOTAL 8.7 mg/dL (8.8-10.5); CREATININE 4.12 mg/dL (0.60-1.30); POTASSIUM 4.1 mmol/L (3.5-5.1)
[2024-09-02 08:20] LABS: RBC MORPHOLOGY COMMENT ABNORMAL RBC MORPH
[2024-09-02 08:53] VITALS: BP 168/107; PULSE 77; RESP 18; TEMP 98.2; O2SAT 97
[2024-09-02 12:49] VITALS: BP 135/81; PULSE 77; RESP 18; TEMP 98.5; O2SAT 99
[2024-09-02 16:24] VITALS: BP 141/50; PULSE 77; RESP 18; TEMP 97.7; O2SAT 98
[2024-09-02 17:06] LABS: GLUCOMETER DEV NAME(LOC) 5N.2C; GLUCOSE,POINT OF CARE 286 MG/DL (70-110)
[2024-09-02 20:00] VITALS: BP 148/80; PULSE 82; RESP 18; TEMP 98; O2SAT 97
[2024-09-03] VITALS (12 sets, daily range): BP systolic 129–178; BP diastolic 79–99; PULSE 70–77; RESP 18–19; TEMP 97.7–98.5; O2SAT 97
[2024-09-03 07:03] LABS: BASOPHILS % (AUTO) 0.1 % (0.0-2.0); EOSINOPHILS % (AUTO) 0.1 % (1.0-6.0); HEMATOCRIT 25.1 % (36-46); HEMOGLOBIN 8.7 g/dL (12.0-16.0); LYMPHOCYTES # (AUTO) 1.1 K/uL (1.0-4.8); LYMPHOCYTES % (AUTO) 12.7 % (22.0-44.0); MEAN CORPUSCULAR HGB CONC 34.5 G/dL (31.0-37.0); MEAN CORPUSCULAR VOLUME 99 fL (80-100); MONOCYTES # (AUTO) 0.9 K/uL (0.1-1.0); MONOCYTES % (AUTO) 10.8 % (2.0-9.0); NEUTROPHILS # (AUTO) 6.4 K/uL (1.8-7.7); NEUTROPHILS % (AUTO) 76.3 % (40.0-70.0); PLATELET COUNT (AUTO) 198 K/uL (150-450); RED BLOOD CELL COUNT(AUTO) 2.55 MIL/uL (4.00-5.20); RED CELL DISTRIBUTION WIDTH 14.8 % (11.5-14.5); WHITE BLOOD COUNT (AUTO) 8.3 K/uL (4.5-11.0)
[2024-09-03 07:04] LABS: CALCIUM, TOTAL 8.4 mg/dL (8.8-10.5); CREATININE 5.77 mg/dL (0.60-1.30); POTASSIUM 4.3 mmol/L (3.5-5.1)
[2024-09-03] MEDS ORDERED: EPOETIN ALFA 10,000 UNITS/ML VIAL SQ SCH (09:00)
[2024-09-03] MEDS ORDERED: HYDR10TA31 PO (13:32)
[2024-09-03] MEDS ORDERED: AZIT-167 PO (13:32)
[2024-09-03] MEDS ORDERED: CEPH-558 PO (13:32)
[2024-09-03] MEDS ORDERED: DEXA4 PO (13:32)
[2024-09-03] MEDS ORDERED: LIDOCAINE/PF 1% 2 ML VIAL ID ONE (18:14)
== END 2024-09-03 18:15 | disposition home or self-care (01) | DRG 177 ==
LOC: EMS 10:56 → EDH 14:51 → 5N 09-01 13:00
PROVIDERS: ADMIT Internal Medicine; ATTEND Internal Medicine
PROC: 5A1D70Z Performance of Urinary Filtration, Intermittent, Less than 6 Hours Per Day (ICD-10-PCS; principal; 2024-08-30)
PROC: 5A1D70Z Performance of Urinary Filtration, Intermittent, Less than 6 Hours Per Day (ICD-10-PCS; 2024-09-01)
PROC: 5A1D70Z Performance of Urinary Filtration, Intermittent, Less than 6 Hours Per Day (ICD-10-PCS; 2024-09-03)
DX: U07.1 COVID-19 (principal); I50.31 Acute diastolic (congestive) heart failure; J96.01 Acute respiratory failure with hypoxia; N18.6 End stage renal disease; R65.11 Systemic inflammatory response syndrome (SIRS) of non-infectious origin with acute organ dysfunction; I13.2 Hypertensive heart and chronic kidney disease with heart failure and with stage 5 chronic kidney disease, or end stage renal disease; I16.0 Hypertensive urgency; E87.5 Hyperkalemia; E11.22 Type 2 diabetes mellitus with diabetic chronic kidney disease; E78.5 Hyperlipidemia, unspecified; D63.1 Anemia in chronic kidney disease; Z99.2 Dependence on renal dialysis; Z79.82 Long term (current) use of aspirin; Z79.899 Other long term (current) drug therapy; Z86.16 Personal history of COVID-19
CPT/HCPCS: 71045; 80048; 80076; 82550; 82962; 83880; 84484; 85025; 87340; 87804; 90935; 93005; 93306; 97116; 97161; 99285; G0378; J0360; J0456; J0696; J0885; J1644; J2270; J2405; J2543; J3490; J3535; J7030; J7040; J7060; J8540; 36415-L1; 36415-TC